=== PATIENT | male | born 1940 | race Caucasian/White ===

== ENCOUNTER 2022-10-26 13:15 | Inpatient (IN) | payer MEDICARE, OTHER ==
[~2022-10-26] VITALS: Ht 177.8 cm; Wt 101.0 kg
[~2022-10-26 13:15] MED LIST: ALBUAER3 IN; ASPI-543 PO; AZIT-43 PO; DIVA250T12 PO; DIVA500T13 PO; DONE1TAB88 PO; FURO1TAB33 PO; GLUC500T48 PO; LEVO137T3 PO; MAGN400T40 OR; POTA1080 PO; RED1CAP PO; [UNRECOGNIZED DRUG - CODE] PO
[2022-10-26] MEDS ORDERED: SODIUM CHLORIDE 0.9% 500 ML IV ONE (14:00)
[2022-10-26] MEDS ORDERED: VANCOMYCIN 1GM/250ML 250 ML IV ONE (14:45)
[2022-10-26] MEDS ORDERED: CEFEPIME 1GM/ 50ML 50 ML IV ONE (14:45)
[2022-10-26 14:47] LABS: Basophils # (auto) 0 10 ^3/uL (0-0.2); Basophils % (auto) 0.3 % (0.0-2.0); Eosinophils # (auto) 0 10 ^3/uL (0-0.8); Eosinophils % (auto) 0.2 % (0.0-7.0); Hematocrit 43.4 % (41.0-53.0); Hemoglobin 14.4 g/dL (13.5-17.5); Mean Corpuscular Hemoglobin 30.8 pg (28.0-32.0); Mean Corpuscular Hgb Conc. 33.1 g/dL (32.0-36.0); Mean Corpuscular Volume 92.9 fL (80.0-100.0); Monocytes # (auto) 0.5 10 ^3/uL (0-1.3); Monocytes % (auto) 3.6 % (0.0-12.0); Neutrophils # (auto) 11.4 10 ^3/uL (1.6-8.6); Neutrophils % (auto) 87.9 % (37.0-80.0); Nucleated Red Blood Cells % 0.1 %; Red Blood Cells 4.67 10^6/uL (4.5-5.90); Red Cell Distribution Width 14.1 % (11.8-14.3)
[2022-10-26 14:52] LABS: Albumin 3.3 g/dL (3.4-5.0); Anion Gap 10 (5-15); Blood Urea Nitrogen 15 mg/dL (7-18); Calcium 8.3 mg/dL (8.5-10.1); Carbon Dioxide 25 mmol/L (21-32); Chloride 102 mmol/L (98-107); Glucose 85 mg/dL (74-106); Potassium 4.3 mmol/L (3.5-5.1); Sodium 137 mmol/L (136-145)
[2022-10-26 14:55] LABS: Alanine Aminotransferase 25 U/L (16-61); Aspartate Aminotransferase 27 U/L (15-37); GFR African American 85 mL/min; GFR Non-African American 70 mL/min
[2022-10-26 14:58] LABS: Alkaline Phosphatase 57 U/L (45-117); Bilirubin, Total 0.6 mg/dL (0.2-1.0); Total Protein 6.5 g/dL (6.4-8.2)
[2022-10-26 15:02] VITALS: PULSE 96; RESP 18; O2SAT 94
[2022-10-26] MEDS ORDERED: ALBUTEROL SULF HFA 90MCG INH 200DOSE IN PRN (16:15)
[2022-10-26] MEDS ORDERED: HYDROcodone-ACET 5/325MG TAB PO PRN (16:15)
[2022-10-26] MEDS ORDERED: ACETAMINOPHEN 325 MG TAB PO PRN (16:15)
[2022-10-26] MEDS ORDERED: HYDROmorphone HCL 2 MG/ML VL/or syr IV PRN (16:15)
[2022-10-26] MEDS ORDERED: ONDANSETRON HCL 4 MG/2 ML VIAL IV PRN (16:15)
[2022-10-26] MEDS ORDERED: LEVOTHYROXINE SODIUM 50 MCG TAB PO ONE (16:15)
[2022-10-26] MEDS ORDERED: DOCUSATE SOD 100 MG CAP PO PRN (16:15)
[2022-10-26 16:37] LABS: Urine Bacteria NONE SEEN /hpf (None Seen); Urine Blood Negative /uL (Negative); Urine Specific Gravity 1.017 (1.001-1.035); Urine WBC <1 /hpf (0 - 3)
[2022-10-26] MEDS: DONEPEZIL HYDROCHLORIDE 5 MG TAB PO SCH (22:46)
[2022-10-26] MEDS: SODIUM CHLOR 0.9% PF (SALINE LOCK) 10ML VIAL/SYR IV SCH (22:48)
[2022-10-26] MEDS: AZITHROMYCIN 500MG/ 250ML 250 ML IV SCH (22:49)
[2022-10-26 23:14] VITALS: BP 115/67; PULSE 79; RESP 17; TEMP 98.4; O2SAT 94
[2022-10-27] VITALS (7 sets, daily range): BP systolic 114–126; BP diastolic 61–69; PULSE 56–73; RESP 16–19; TEMP 97.7–98; O2SAT 94–100
[2022-10-27] MEDS: CEFEPIME 1GM/ 50ML 50 ML IV SCH ×2 (04:16→16:38)
[2022-10-27] MEDS: SODIUM CHLOR 0.9% PF (SALINE LOCK) 10ML VIAL/SYR IV SCH ×3 (07:03→21:45)
[2022-10-27 08:00] LABS: Basophils # (auto) 0 10 ^3/uL (0-0.2); Basophils % (auto) 0.3 % (0.0-2.0); Eosinophils # (auto) 0 10 ^3/uL (0-0.8); Eosinophils % (auto) 0.4 % (0.0-7.0); Hematocrit 38.5 % (41.0-53.0); Lymphocytes # (auto) 1.4 10 ^3/uL (0.4-5.4); Lymphocytes % (auto) 13.8 % (10.0-50.0); Mean Corpuscular Hemoglobin 31.1 pg (28.0-32.0); Mean Corpuscular Hgb Conc. 33.9 g/dL (32.0-36.0); Mean Corpuscular Volume 91.8 fL (80.0-100.0); Monocytes # (auto) 0.5 10 ^3/uL (0-1.3); Monocytes % (auto) 5.2 % (0.0-12.0); Neutrophils # (auto) 8.2 10 ^3/uL (1.6-8.6); Neutrophils % (auto) 80.3 % (37.0-80.0); Red Blood Cells 4.19 10^6/uL (4.5-5.90); Red Cell Distribution Width 14.3 % (11.8-14.3); White Blood Cell 10.2 10^3/uL (4.4-10.8)
[2022-10-27 08:13] LABS: BUN/Creatinine Ratio 12.1 (10.0-20.0); Calcium 7.7 mg/dL (8.5-10.1)
[2022-10-27] MEDS: ASPirin-EC 81 mg tab PO SCH (09:46)
[2022-10-27] MEDS: ENOXAPARIN SOD 40 MG/0.4 ML SYRINGE SC SCH (09:46)
[2022-10-27] MEDS: AZITHROMYCIN 500MG/ 250ML 250 ML IV SCH (09:46)
[2022-10-27] MEDS ORDERED: ALBUTEROL SULF 2.5 MG/0.5ML(0.5%) NEB SOLN NEB PRN (12:15)
[2022-10-27] MEDS: DONEPEZIL HYDROCHLORIDE 5 MG TAB PO SCH (21:45)
[2022-10-28] VITALS (9 sets, daily range): BP systolic 107–117; BP diastolic 61–66; PULSE 59–76; RESP 17–19; TEMP 98.2–98.6; O2SAT 90–97
[2022-10-28] MEDS: CEFEPIME 1GM/ 50ML 50 ML IV SCH ×2 (03:12→18:40)
[2022-10-28] MEDS: SODIUM CHLOR 0.9% PF (SALINE LOCK) 10ML VIAL/SYR IV SCH ×3 (05:57→22:09)
[2022-10-28] MEDS ORDERED: FUROSEMIDE 20 MG TAB PO SCH (10:00)
[2022-10-28] MEDS: ASPirin-EC 81 mg tab PO SCH (10:13)
[2022-10-28] MEDS: ENOXAPARIN SOD 40 MG/0.4 ML SYRINGE SC SCH (10:14)
[2022-10-28] MEDS: DONEPEZIL HYDROCHLORIDE 5 MG TAB PO SCH (22:09)
[2022-10-29] VITALS (7 sets, daily range): BP systolic 96–138; BP diastolic 62–70; PULSE 52–67; RESP 17–19; TEMP 97.5–98; O2SAT 94–97
[2022-10-29] MEDS: CEFEPIME 1GM/ 50ML 50 ML IV SCH ×2 (03:36→15:57)
[2022-10-29] MEDS: SODIUM CHLOR 0.9% PF (SALINE LOCK) 10ML VIAL/SYR IV SCH ×2 (06:35→13:57)
[2022-10-29] MEDS: ENOXAPARIN SOD 40 MG/0.4 ML SYRINGE SC SCH (10:06)
[2022-10-29] MEDS: ASPirin-EC 81 mg tab PO SCH (10:06)
[2022-10-29] MEDS ORDERED: AZITTAB PO (11:57)
== END 2022-10-29 16:05 | disposition home or self-care (01) | DRG 871 ==
LOC: EDBD 13:15 → ER 13:15 → OVERFLOW 16:09 → CENTRAL 21:50
PROVIDERS: ADMIT Internal Medicine; ATTEND Student in an Organized Health Care Education/Training Program
DX: A41.9 Sepsis, unspecified organism (principal); G93.41 Metabolic encephalopathy; J15.9 Unspecified bacterial pneumonia; I50.32 Chronic diastolic (congestive) heart failure; I11.0 Hypertensive heart disease with heart failure; F03.90 Unspecified dementia, unspecified severity, without behavioral disturbance, psychotic disturbance, mood disturbance, and anxiety; E66.9 Obesity, unspecified; Z68.31 Body mass index [BMI] 31.0-31.9, adult; X30.XXXA Exposure to excessive natural heat, initial encounter; Y93.89 Activity, other specified; Y92.89 Other specified places as the place of occurrence of the external cause; Y99.8 Other external cause status
CPT/HCPCS: 36415; 70450; 71045; 80048; 80053; 80164; 81001; 83605; 84443; 84484; 85025; 85652; 86141; 87040; 93005; 94640; 96365; 96367; 97110; 97116; 97163; 97530; G0378

== ENCOUNTER → 2023-10-22 | Outpatient (CLI) | payer MEDICARE, OTHER ==
[~2023-10-22] MED LIST changes: -AZIT-43 PO; +AZITTAB PO
== END | disposition home or self-care (01) ==
LOC: Rad HDHVI 14:52
PROVIDERS: ATTEND Internal Medicine Cardiovascular Disease
DX: R06.02 Shortness of breath (principal); R05.9 Cough, unspecified
CPT/HCPCS: 71046

== ENCOUNTER 2024-09-08 10:20 | Emergency (ER) | payer MEDICARE, OTHER ==
[~2024-09-08] VITALS: Ht 177.8 cm; Wt 100.0 kg
--- NOTE | 2024-09-08 12:25 | ED.PDOC ---
Musculoskeletal HPI Comments A 84-year-old male with a past medical history of Dementia, thyroid disease, hypertension presents to the emergency department with a chief complaint of RT ankle pain s/p fall onset 2 days. Patient states he was walking, twisted RT ankle, was held by an individual, did not fall on the ground. Since then, patient has been experiencing pain and swelling to RT ankle, pain worsens with walking. No other symptoms or modifying factors present at this time. Able to bear weight Denies previous surgeries to the ankle Denies fever chills night sweats nausea vomiting Denies head injury, LOC Denies dizziness, blurry vision Chief Complaint: Lower Extremity Time Seen by MD: 11:50 Reviewed Notes: Nurses Notes, Medications, Allergies Allergies: Coded Allergies: NO KNOWN ALLERGIES (Unverified , 10/19/22) Home Meds Active Scripts Azithromycin (Zithromax Z-Miguel A) 250 Mg Tab, 250 MG PO DAILY, #6 TAB Prov:GLORIA RASMUSSEN MD 10/29/22 Albuterol Sulfate (VENTOLIN MDI) 90 Mcg Ih, 90 MCG IN Q6HP PRN for 30 Days, #2 INH Prov:ANDRES QUACH MD 10/22/22 Furosemide (Lasix) 20 Mg Tb, 1 TAB PO TUTHSA, #30 TAB 0 Refills Prov:ANDRES QUACH MD 10/22/22 Reported Medications Red Yeast Rice Extract (Red Yeast Rice) 300 Mg Cap, 300 MG PO, CAP 10/20/22 Aspirin (Aspir-Low) 81 Mg Tab, 81 MG PO DAILY for 30 Days, MG 10/20/22 Glucosamine Hydrochloride (GLUCOSAMINE) 500 Mg Tab, 1500 MG PO, TAB 10/20/22 Calcium Citrate (Calcium Citrate) 250 Mg Tab, 500 MG PO, TAB 10/20/22 Magnesium Oxide (MAGNESIUM OXIDE) 400 Mg Tab, 250 MG OR, TAB 10/20/22 Potassium Citrate (Potassium Citrate) 1,080 Mg Tab, 99 MG PO, TAB 10/20/22 Divalproex Sodium (Divalproex Sodium) 250 Mg Tab, 250 MG PO DAILY for 30 Days, MG 10/20/22 Divalproex Sodium (Divalproex Sodium) 500 Mg Tab, 500 MG PO BID for 30 Days, MG 10/20/22 Donepezil Hydrochloride (DONEPEZIL HCL) 10 Mg Tab, 10 MG PO DAILY for 30 Days, MG 10/20/22 Levothyroxine Sodium (Levothyroxine Sodium) 137 Mcg Tab, 137 MCG PO QAM for 30 Days 10/20/22 Information Source: Patient, Friend Mode of Arrival: Wheelchair Location: Right Extremity Location: Ankle Timing: Days Prehospital treatment: None Severity: Moderate Able to Move Extremity: Yes Bear Weight: Limited Pain: Moderate Mechanism: Twisting Circumstances: Fall Onset of Symptoms: After Trauma Symptoms: Swelling, Pain DVT Risk Factors: NONE Associated signs and symptoms: Wrist pain Past Medical History PAST MEDICAL HISTORY: Dementia, HTN, Thyroid Surgical History: Denies all surgeries Family History Family History: Unknown Social History Smoker: Non-Smoker Alcohol: Denies ETOH Use Drugs: Denies Drug Use Lives In: Home All Other Systems: Reviewed and Negative (as per HPI) Physical Exam General Appearance: Normal HEENT: Normal ENT Inspection, Pharynx Normal, TMs Normal Neck: Full Range of Motion, Non-Tender, Normal, Normal Inspection Respiratory: Chest Non-Tender, Lungs Clear, No Accessory Muscle Use, No Respiratory Distress, Normal Breath Sounds Cardiovascular: No Edema, No JVD, No Murmur, No Gallop, Normal Peripheral Pulses, Regular Rate/Rhythm Breast Exam: Deferred Gastrointestinal: No Organomegaly, Non Tender, No Pulsatile Mass, Normal Bowel Sounds, Soft Genitalia: Deferred Pelvic: Deferred Rectal: Deferred Extremities: No calf tenderness, Normal capillary refill, Normal inspection, Normal range of motion, Non-tender, No pedal edema Musculoskeletal : Location: Right Extremity Location: Ankle (no bony step offs, full ROM, foward flexion, extension, no echymosis, no soft tissue sweling or open wounds noted, dorsi/platnar flexion strong, no pain to medial malleolus or achilles or lower extensor retinaculum . only localized pain to lateral malleolus, cap refill less than 3 seconds, nerual vascular intact ) Apperance: Normal Neurologic: Alert, federal [employer] II-XII nml as Tested, No Motor Deficits, Normal Affect, Normal Mood, No Sensory Deficits Cerebellar Function: Normal Reflexes: Normal Skin: Dry, Normal Color, Warm Lymphatic: No Adenopathy Was a procedure done? Was a procedure done?: No Differential Diagnosis EXT Differential Diagnosis: Fracture, Sprain, Dislocation X-Ray, Labs, Meds, VS Vital Signs Date Time Temp Pulse Resp B/P (MAP) Pulse Ox O2 Delivery O2 Flow Rate FiO2 09/08/24 10:37 98.2 72 18 105/72 (83) 94 98.2 X-Ray, Labs, Meds, VS Comment A 84-year-old male with a past medical history of Dementia, thyroid disease, hypertension presents to the emergency department with a chief complaint of RT ankle pain s/p fall onset 2 days. Patient arrives alert and oriented, ABC's intact, afebrile, vital signs stable, saturating well in room air Findings: No fracture or dislocation My wet read reveals no apparent acute bony abnormality, no FB, minimal to no soft tissue swelling and appropriate alignment. Presentation most consistent with Ankle Sprain. Patient does not currently demonstrate complications of sprain such as compartment syndrome, arterial or nerve injury. Differentials considered but not limited to: sprain, fracture, achilles tendon rupture, Maisonneuve fracture, distal fibula avulsion fracture, bi/tri-malleolar fracture, neurovascular compromise. The joint itself is non-irritable with ROM and there is no overlying redness and warmth to suggest injection. The Achilles and dorsiflexion tendon are non-tender and extension is intact. Disposition: Discharge. Supportive bracing provided. Patient was placed in an air-splint, WBAT. RICE. Strict return precautions and instructions to follow up with primary MD within 24-48 hours for further evaluation. May benefit from additional imaging such as stress views or MRI. Additional MDM Review of External, Non-ED records: External records reviewed. Discussion with independent historian (EMS, family) history obtained from the patient/parents (if applicable) at bedside Chronic conditions affecting care: Dementia, HTN, thyroid Social determinants of health affecting care: None Consideration of admission (observation or admission): I considered escalation of care to admission for this patient, however given the reassuring workup, the patient is safe for outpatient management. Time of 1ST Reevaluation: 12:20 Reevaluation 1ST: Improved Patient Education/Counseling: Diagnosis, Treatment, Prognosis Family Education/Counseling: Diagnosis, Treatment, Prognosis Departure 1 Departure Time of Disposition: 12:51 Impression: Primary Impression: Ankle sprain Qualified Codes: S93.401A - Sprain of unspecified ligament of right ankle, initial encounter Disposition: HOME / SELF CARE / HOMELESS Condition: Fair Discharged With: Self Critical Care Note Critical Care Time?: No Stability Stability form required: No Heart Score Heart Score: Heart Score Response (Comments) Value History N/A 0 EKG N/A 0 Age N/A 0 Risk Factors N/A 0 Troponin N/A 0 Total 0 I personally scribed for DYLAN GRANADOS NP ([email or web address]) on 09/08/24 at 12:25. Electron ically submitted by Lexei Larry ([email or web address]). DYLAN GRANADOS NP Sep 08, 2024 12:25
--- NOTE | 2024-09-08 12:44 | DVH ---
CLINICAL INDICATION: Trauma; R/o fracture. Pain to lateral malleolus TECHNIQUE: 3 radiographic views of the right ankle were obtained. Comparison: None FINDINGS/IMPRESSION: There is no evidence of acute fracture or dislocation. Small plantar calcaneal enthesophyte. The visualized joint space is well maintained. Small plantar calcaneal enthesophyte. The alignment is anatomical. There is no radiopaque foreign body.
[2024-09-08 13:02] VITALS: BP 115/62; PULSE 77; RESP 17; TEMP 98.4; O2SAT 97
== END 2024-09-08 13:04 | disposition home or self-care (01) ==
LOC: ER 10:20
DX: S93.401A Sprain of unspecified ligament of right ankle, initial encounter (principal); F03.90 Unspecified dementia, unspecified severity, without behavioral disturbance, psychotic disturbance, mood disturbance, and anxiety; I10 Essential (primary) hypertension; Z79.899 Other long term (current) drug therapy; W19.XXXA Unspecified fall, initial encounter; Y93.01 Activity, walking, marching and hiking; Y92.89 Other specified places as the place of occurrence of the external cause; Y99.8 Other external cause status
CPT/HCPCS: 73610

== ENCOUNTER → 2024-10-01 | Outpatient (CLI) | payer MEDICARE, OTHER | END | disposition home or self-care (01) | LOC: Rad HDHVI 13:02 | PROVIDERS: ATTEND Internal Medicine Cardiovascular Disease | DX: I08.1 Rheumatic disorders of both mitral and tricuspid valves (principal); I10 Essential (primary) hypertension; R00.2 Palpitations | CPT/HCPCS: 93306 ==

== ENCOUNTER 2024-10-13 13:49 | Outpatient (CLI) | payer MEDICARE, OTHER ==
[~2024-10-13] VITALS: Ht 179.1 cm; Wt 101.6 kg
== END 2024-10-13 17:00 | disposition home or self-care (01) ==
LOC: Rad HDHVI 13:49
PROVIDERS: ATTEND Internal Medicine Cardiovascular Disease
DX: I49.1 Atrial premature depolarization (principal); I49.3 Ventricular premature depolarization; R00.0 Tachycardia, unspecified; R00.1 Bradycardia, unspecified; Z13.6 Encounter for screening for cardiovascular disorders; I11.0 Hypertensive heart disease with heart failure; I50.33 Acute on chronic diastolic (congestive) heart failure; R06.02 Shortness of breath; I25.709 Atherosclerosis of coronary artery bypass graft(s), unspecified, with unspecified angina pectoris; E78.00 Pure hypercholesterolemia, unspecified; Z79.82 Long term (current) use of aspirin
CPT/HCPCS: 78452; 93017; A9500; 96374